=== PATIENT | female | born 1985 | race American Indian/Alaskan Native ===

== ENCOUNTER 2018-05-29 13:35 | Outpatient (CLI) | payer BC | END 2018-05-29 13:36 | disposition home or self-care (01) | LOC: LAB 13:35 | PROVIDERS: ATTEND Obstetrics & Gynecology | DX: N91.1 Secondary amenorrhea (principal) | CPT/HCPCS: 36415; 82627; 82670; 83001; 84146; 84402; 84443 ==

== ENCOUNTER 2018-07-26 09:53 | Outpatient (CLI) | payer BC | END 2018-07-26 09:54 | disposition home or self-care (01) | LOC: LAB 09:53 | PROVIDERS: ATTEND Obstetrics & Gynecology | DX: N91.1 Secondary amenorrhea (principal) | CPT/HCPCS: 36415; 82627; 82670; 83001; 84146; 84402; 84443 ==

== ENCOUNTER 2018-12-13 12:45 | Outpatient (CLI) | payer BC ==
[2018-12-13 13:01] LABS: Hematocrit 40.1 % (30.3-42.9); Hemoglobin 13.9 gm/dl (10.1-14.3); Mean Corpuscular HGB Conc 35 % (30-34); Mean Corpuscular Volume 88 fl (79-97); Platelet Count 230 K/mm3 (140-440); Red Blood Count 4.58 M/mm3 (3.65-5.03); Red Cell Distribution Width 13.4 % (13.2-15.2)
[2018-12-13 13:17] LABS: Alanine Aminotransferase 12 units/L (7-56); Albumin 4.2 g/dL (3.9-5); BUN/Creatinine Ratio 17; Blood Urea Nitrogen 10 mg/dL (7-17); Calcium 9.1 mg/dL (8.4-10.2); Chol/HDL Ratio 2.74 %; HDL Cholesterol 51 mg/dL (40-59); Hemolysis Index 2; LDL Cholesterol,Direct 96 mg/dL (50-130)
== END 2018-12-13 12:46 | disposition home or self-care (01) ==
LOC: LAB 12:45
DX: Z00.00 Encounter for general adult medical examination without abnormal findings (principal)
CPT/HCPCS: 36415; 80053; 80061; 83036; 84443; 85027